=== PATIENT | female | born 2005 | race Hispanic/Latino ===

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

== ENCOUNTER → 2024-10-03 | Outpatient (CLI) | payer BC ==
--- NOTE | 2024-10-04 09:22 | HMCIMG ---
Exam Type: MRI OF THE LUMBAR SPINE WITHOUT GADOLINIUM Clinical Information: M54.16 Radiculopathy, lumbar region Comparison: None Technique: Sagittal T1 and T2 FSE, Sagittal STIR and Sagittal proton density images were completed through the lumbosacral spine. Axial T1, T2 and proton density images were also acquired. FINDINGS: Examination shows adequate alignment of the vertebral bodies of the lumbar spine. No fractures or dislocations are identified. Vertebral body height and disc height is preserved at all levels. The bone marrow signal is normal for age. The spinal canal contents are preserved. The conus terminates at a normal level at T12 to L2. The paraspinal muscles and other tissues show no significant abnormalities. Evaluation of the lumbar spine by level: T12-L1: There is no spinal canal stenosis. No disc herniation or bulge is noted. There is no neural foraminal stenosis, impingement, or narrowing. L1-L2: There is no spinal canal stenosis. No disc herniation or bulge is noted. There is no neural foraminal stenosis, impingement, or narrowing. L2-L3: There is no spinal canal stenosis. No disc herniation or bulge is noted. There is no neural foraminal stenosis, impingement, or narrowing. L3-L4: There is no spinal canal stenosis. No disc herniation or bulge is noted. There is no neural foraminal stenosis, impingement, or narrowing. L4-L5: There is no spinal canal stenosis. Mild posterior disc bulge is noted. There is no neural foraminal stenosis, impingement, or narrowing. L5-S1: There is no spinal canal stenosis. No disc herniation or bulge is noted. There is no neural foraminal stenosis, impingement, or narrowing. Impression: Mild posterior disc bulge L4-5. No canal stenosis. No nerve root impingement. No neural foramina narrowing.
== END | disposition home or self-care (01) ==
LOC: RAH 14:54
PROVIDERS: ATTEND Anesthesiology Pain Medicine
DX: M51.16 Intervertebral disc disorders with radiculopathy, lumbar region (principal)
CPT/HCPCS: 72148